=== PATIENT | male | born 1965 | race African-American/Black ===

== ENCOUNTER 2020-09-30 11:13 | Emergency (ER) | payer OTHER ==
[~2020-09-30 11:13] MED LIST: KEFLEX500 MG PO
[2020-09-30 12:57] LABS: BASOPHIL 1.2 % (0-2); BILIRUBIN 2+ mg/dL (NEGATIVE); BLOOD NEGATIVE Ery/uL (NEGATIVE); CLARITY CLEAR (CLEAR); EOSINOPHIL 0.4 % (0-5); GLUCOSE (U) NORMAL (NORMAL); HCT 33.7 % (42.0-52.0); HGB 11.4 g/dl (13.2-18.0); LEUKOCYTES NEGATIVE Leu/uL (NEGATIVE); LYMPHOCYTE 17.8 % (15-48); MCH 32.3 pg (25.0-31.0); MCHC 33.8 g/dL (32.0-36.0); MCV 95.5 fL (78.0-100.0); MONOCYTE 13.1 % (0-12); MPV 11.1 fL (6.0-9.5); NEUTROPHIL 67.3 % (41-80); NITRITE NEGATIVE (NEGATIVE); NRBC 0; PLT 198 K/uL (150-400); PROTEIN TRACE (LOW) mg/dL (NEGATIVE); RBC 3.53 M/uL (4.70-6.00); RDW 17.5 % (11.5-14.0); SPECIFIC GRAVITY 1.025 (1.001-1.030); UROBILINOGEN 0.2 mg/dL (0.2-1.0)
[2020-09-30 12:59] LABS: ALBUMIN 2.2 g/dL (3.4-5.0); BILIRUBIN - TOTAL 3.5 mg/dL (0.2-1.0); COLOR AMBER (YELLOW); CREATININE 0.71 mg/dL (0.67-1.17); GLOBULIN (CALCULATION) 4.8 g/dL; POTASSIUM 3.2 mmol/L (3.5-5.1)
[2020-09-30 13:13] LABS: MUCOUS MODERATE
[2020-09-30 13:14] LABS: BACTERIA TRACE
[2020-09-30 16:28] LABS: RBC (FLUID) 0 RBC/uL; WBC (FLUID) 32 WBC/uL
[2020-09-30 16:39] LABS: CLARITY (FLUID) CLOUDY; COLOR (FLUID) YELLOW
== END 2020-09-30 18:20 | disposition home or self-care (01) ==
LOC: FER 11:13
PROVIDERS: Emergency Medicine; Nurse Practitioner Family
DX: K74.60 Unspecified cirrhosis of liver (principal); U07.1 COVID-19
CPT/HCPCS: 36415; 80053; 81001; 82150; 83690; 84157; 85025; 87070; 87205; 89051; 96374; P9046; Q9967; U0002